=== PATIENT | male | born 1955 | race Caucasian/White ===

== ENCOUNTER 2021-05-05 17:25 | Emergency (ER) | payer MEDICARE, MEDICAID, SELFPAY ==
[2021-05-05 17:25] VITALS: PULSE 0; RESP 0; BMI 38.3
--- NOTE | 2021-05-05 18:00 | PC.NURSE ---
[employer] Hel[employer] notified of patient. Patient declined and released by cloth examiner machine.
--- NOTE | 2021-05-05 18:19 | ED.CPR ---
HPI - CPR General Chief Complaint: Cardiac Arrest/CPR Stated Complaint: cardiac arrest Time Seen by Provider: 05/05/21 17:42 Source: EMS Mode of arrival: EMS Limitations: other (Cardiac arrest) History of Present Illness HPI narrative: 65-year-old male came in by ambulance for further management of cardiac arrest. 65-year-old male with history of COPD, respiratory failure, diastolic heart failure, diabetes type 2, patient is a resident of shelter found unresponsive on the ground with unknown time down, on EMS arrival patient was pulseless with no electrical activity CPR was started patient received 4 rounds of 1 mg epinephrine each, was return of some electrical activity and falls, CPR was proceeded in transfer to the hospital with David tube airway. On arrival to the emergency department patient was pulseless, in asystole, airway was secured by endotracheal intubation please refer to the procedure note. CPR was continued, 2 rounds of epinephrine 1 mg each was injected, 1 amp of bicarb was also given, patient remained pulseless and in asystole. No Cardiac activity was checked by ultrasound patient was pronounced at 17:35. Related Data Allergies Allergy/AdvReac Type Severity Reaction Status Date / Time No Known Allergies Allergy Verified 05/05/21 20:01 Review of Systems Review of Systems: Yes Unobtainable due to mental status PMFSH Social History Social History Advance Directives: No Advance Directives Information Provided: No Physical Exam Vital Signs: Vital Signs: Last Vital Signs Pulse 0 L 05/05/21 17:25 Resp 0 L 05/05/21 17:25 Body Mass Index 38.3 Patient is intubated, asystole, pulse is 130 with CP number. Blood pressure was unobtainable. Appearance: Unresponsive. Head: Pupils 3 mm nonreactive to light. Eyes: Eyelids normal. Neck: No trauma CVS: Asystole, pulseless Respiratory: Apneic, intubated. Abdomen: Soft and obese Back: No trauma, no injury. . Course Course Course Narrative: 65-year-old with multiple comorbidity came in after was found in cardiac arrest, attempt of CPR and resuscitation was unsuccessful case discussed with medical assistant supervisor case was declined case number is [id number] by Enio Graff. Attempt to reach to the family and notify him still unsuccessful. 2nd attempt to call Darrylsherry Ramírez at [phone] Called Christy Kumar and she was notified ( not family member/ responsible for patient's psych meds). Attempt to call Freddie Lundberg (brother) was unsuccessful detention was notified. Procedures Intubation sedative: none Laryngoscope: other (Colitis call) ET Tube Size: 8 Tube Secured Depth (cm): 22 Tube Secured Location: lips Tube Placement Confirmation: visualized tube passing through cords, equal breath sounds bilaterally and confirmation by capnometry Intubation Complications: none Discharge Plan Discharge Clinical Impression: Cardiac arrest Patient Disposition: Date/Time: 05/05/21 17:35
--- NOTE | 2021-05-05 18:28 | PC.NURSE ---
Spoke [facility] and informed of patient. Pt is accepted for potential donation. Okay given for post mortem care and [facility] states they will contact the family. Reference #[id number]
--- NOTE | 2021-05-05 20:24 | PC.NURSE ---
JULIÁN LEE REPORTS THAT PT CLEARED BY PRODUCTION TECH, [facility] CONTACTED AND THEY ARE INTERESTED IN TISSUE DONATION. MD NAVARRETE NOT ABLE TO GET IN TOUCH WITH FAMILY. PT READY FOR POST MORTEM CAR AND TRANSPORT TO [facility] [place]. [facility] CARED FOR PT PMC AND TRANSPORT.
== END 2021-05-05 20:30 | disposition expired ==
PROVIDERS: Emergency Provider Emergency Medicine; PCP Internal Medicine
DX: I46.9 Cardiac arrest, cause unspecified (principal); J44.9 Chronic obstructive pulmonary disease, unspecified; E11.9 Type 2 diabetes mellitus without complications; I50.30 Unspecified diastolic (congestive) heart failure; J96.90 Respiratory failure, unspecified, unspecified whether with hypoxia or hypercapnia
CPT/HCPCS: 31500; 99282; 99284; J0171